=== PATIENT | male | born 1975 | race Caucasian/White ===

== ENCOUNTER 2016-09-09 19:58 | Emergency (ER) | payer BC ==
[2016-09-09 20:15] VITALS: BP 119/63
[2016-09-09] MEDS ORDERED: Amoxicillin/Clavulanate TAB* 875 MG PO ONE (20:22)
--- NOTE | 2016-09-09 20:31 | UC ---
Dental HPI - HPI Summary HPI Summary: Patient with a CC of dental pain located near the R upper molar x 2 weeks. He was seen by his dentist 2 weeks ago when symptoms began. Dentist stated to rinse with salt water and use water pick to clean out the area of the molar which may have a slight "hole" in the area. After 1 week of doing this twice daily, he states his symptoms improved and the pain dissipated. Now, he states the pain has returned and worsened. He also notes to associated pain in both ear, R sided throat pain and pain with swallowing. He states the dentist stated if symptoms did not improve, they would send over an antibiotic, however today the dentist is closed and patient states he cannot handle the pain anymore and is afraid it is an infection that is progressively worsening. Patient is taking ibuprofen for relief of pain. - History of Current Complaint Chief Complaint: UCDentalProblem Stated Complaint: DENTAL PAIN Hx Obtained From: Patient Onset/Duration: Gradual Onset Severity: Moderate Pain Intensity: 8 Pain Scale Used: 0-10 Numeric Aggravating: Heat, Cold, Chewing Alleviating: OTC Meds - ibuprofen improves symptoms Related History: Previous Dental Care on Same Tooth, Swelling - "feels" swollen per patient - Allergies/Home Medications Allergies/Adverse Reactions: Allergies Allergy/AdvReac Type Severity Reaction Status Date / Time No Known Allergies Allergy Verified 09/09/16 20:08 Home Medications: Home Medications Ibuprofen TAB* [Advil TAB*] 600 mg PO Q6H PRN 09/09/16 [History Confirmed ] PMH/Surg Hx/FS Hx/Imm Hx Previously Healthy: Yes Endocrine History Of: Denies: Diabetes, Thyroid Disease Cardiovascular History Of: Denies: Cardiac Disorders, Hypertension Respiratory History Of: Denies: COPD, Asthma GI/ History Of: Denies: Ulcer - Surgical History Surgical History: Yes Surgery Procedure, Year, and Place: Appendix out- 1979 - Family History Known Family History: Positive: Unknown - Social History Occupation: Employed Full-time Lives: With Family Alcohol Use: Rare Substance Use Type: None Smoking Status (MU): Former Smoker Have You Smoked in the Last Year: No - Immunization History Hx Tetanus, Diphtheria Vaccination: No Vaccination Up to Date: No Review of Systems Constitutional: Negative Skin: Negative Eyes: Negative ENT: Dental Pain, Sore Throat, Ear Ache Respiratory: Negative Cardiovascular: Negative Gastrointestinal: Negative Motor: Negative Musculoskeletal: Negative Neurological: Negative All Other Systems Reviewed And Are Negative: Yes Physical Exam Triage Information Reviewed: Yes Appearance: Well-Appearing, No Pain Distress, Well-Nourished Vital Signs: Initial Vital Signs Temp 97.7 F 09/09/16 20:12 Pulse 66 09/09/16 20:12 Resp 16 09/09/16 20:12 BP 119/63 09/09/16 20:12 Pulse Ox 99 09/09/16 20:12 Vital Signs Reviewed: Yes Eye Exam: Normal Eyes: Positive: Conjunctiva Clear ENT Exam: Normal ENT: Positive: Pharynx normal, TMs normal Dental: Positive: Percussion Tenderness @ - right upper and lower jaw, TMJ tenderness, right cervical node tenderness. Neck exam: Normal Neck: Positive: Supple, No Lymphadenopathy, Tenderness @ - cervical node Respiratory: Positive: Chest non-tender, Lungs clear, Normal breath sounds Cardiovascular Exam: Normal Musculoskeletal Exam: Normal Musculoskeletal: Positive: Strength Intact, ROM Intact Neurological Exam: Normal Neurological: Positive: Alert Psychological: Positive: Normal Response To Family, Age Appropriate Behavior Skin Exam: Normal Dental Complaint Course/Dx - Course Course Of Treatment: Patient given abx for dental abscess based on dentist recommendation and current pain over palpation of jaw, TMJ, throat and ear pain. Ibuprofen encouraged 600mg three times daily. Follow up with dentist this week. - Differential Dx/Diagnosis Differential Diagnosis/Dx: Dental Abscess, Dental Caries, Post Extraction Pain Provider Diagnoses: dental pain Discharge - Discharge Plan Condition: Stable Disposition: HOME Prescriptions: Amoxicillin/Clavulanate TAB* [Augmentin TAB 875*] 875 mg PO BID #14 tab MDD 2 Patient Education Materials: Dental Abscess (ED) Referrals: Genaro Jauregui MD [Primary Care Provider] - Additional Instructions: Return to if symptoms worsen or pain is not controlled with OTC pain medications such as tylenol or Ibuprofen. Take medication as prescribed to you. Iburpofen 600mg three times daily with meals for 3-4 days. Follow up with dentist as soon as possible. Images Dental: 1 - space "hole" with possible abscess over pulled molar
== END 2016-09-09 20:34 | disposition home or self-care (01) ==
LOC: UCEAST 19:58
DX: K08.89 Other specified disorders of teeth and supporting structures (principal); Z87.891 Personal history of nicotine dependence
CPT/HCPCS: 99212; A9270-GY; G0463

== ENCOUNTER 2017-03-18 11:30 | Emergency (ER) | payer BC ==
[2017-03-18 12:26] VITALS: BP 118/69
--- NOTE | 2017-03-18 12:46 | UC ---
Throat Pain/Nasal Barry HPI - HPI Summary HPI Summary: 42 y/o male presents to the urgent care c/o of sore throat with difficulty swallowing since 03/16/2017. Pt reports his pain is 4/10. Pt has not taking anything to alleviate symptoms. Pt denies fever, cough, SOB, chest pain, N/V/ D. MOREIRA. Pt has not other complains. - History of Current Complaint Chief Complaint: UCGeneralIllness Stated Complaint: THROAT PAIN Time Seen by Provider: 03/18/17 12:35 Hx Obtained From: Patient Onset/Duration: Gradual Onset, Lasting Days, Still Present Severity: Moderate Pain Intensity: 4 Pain Scale Used: 0-10 Numeric Associated Signs & Symptoms: Positive: Dysphagia. Negative: Sinus Discomfort, Fever, Vomiting, Rash - Epiglottits Risk Factors Epiglottis Risk Factors: Negative - Allergies/Home Medications Allergies/Adverse Reactions: Allergies Allergy/AdvReac Type Severity Reaction Status Date / Time No Known Allergies Allergy Verified 03/18/17 12:20 PMH/Surg Hx/FS Hx/Imm Hx Previously Healthy: Yes - Surgical History Surgical History: Yes Surgery Procedure, Year, and Place: Appendix out1979 - Family History Known Family History: Positive: None - Social History Occupation: Employed Full-time Lives: With Family Alcohol Use: Rare Substance Use Type: None Smoking Status (MU): Former Smoker Have You Smoked in the Last Year: No - Immunization History Most Recent Influenza Vaccination: 2014 Most Recent Tetanus Shot: up to date Hx Tetanus, Diphtheria Vaccination: No Vaccination Up to Date: No Review of Systems Constitutional: Negative Skin: Negative Eyes: Negative ENT: Sore Throat Respiratory: Negative Cardiovascular: Negative Gastrointestinal: Negative Genitourinary: Negative Motor: Negative Neurovascular: Negative Musculoskeletal: Negative Neurological: Negative Psychological: Negative All Other Systems Reviewed And Are Negative: Yes Physical Exam Triage Information Reviewed: Yes Appearance: Well-Appearing, No Pain Distress, Well-Nourished Vital Signs: Initial Vital Signs Temp 98.9 F 03/18/17 12:21 Pulse 64 03/18/17 12:21 Resp 18 03/18/17 12:21 BP 118/69 03/18/17 12:21 Pulse Ox 99 03/18/17 12:21 Vital Signs Reviewed: Yes Eye Exam: Normal Eyes: Positive: Conjunctiva Clear - PERRLA, EOMI, Fundi grossly normal ENT: Positive: Normal ENT inspection, Hearing grossly normal, Pharyngeal erythema - mild exudate, TMs normal, Tonsillar swelling. Negative: Tonsillar exudate Dental Exam: Normal Neck exam: Normal Neck: Positive: Supple, Nontender, No Lymphadenopathy Respiratory Exam: Normal Respiratory: Positive: Chest non-tender, Lungs clear, Normal breath sounds Cardiovascular Exam: Normal Cardiovascular: Positive: RRR, No Murmur, Pulses Normal Abdominal Exam: Normal Abdomen Description: Positive: Nontender, No Organomegaly, Soft. Negative: CVA Tenderness (R), CVA Tenderness (L) Bowel Sounds: Positive: Present Musculoskeletal Exam: Normal Musculoskeletal: Positive: Strength Intact, ROM Intact, No Edema Neurological Exam: Normal Psychological Exam: Normal Skin Exam: Normal Throat Pain/Nasal Course/Dx - Course Course Of Treatment: 42 y/o male presents to the urgent care c/o of sore throat with difficulty swallowing since 03/16/2017. Pt reports his pain is 4/10. Pt has not taking anything to alleviate symptoms. Pt denies fever, cough, SOB, chest pain, N/V/D. MOREIRA. Hx obtained,. PE abnormal findings: ENT: Positive: Normal ENT inspection, Hearing grossly normal, Pharyngeal erythema - mild exudate, TMs normal, Tonsillar swelling. Negative: Tonsillar exudate. Rapid strep ordered. Result:negative. Pt Rx Ibuprofen prn after meals to alleviate symptoms of pain and swelling, Advised to increase fluid intake and rest. If not improvement of symptoms or symptoms worsen to return to the clinic or f/u with his PCP. Pt uderstood and agreed. Pt left the clinic ambulating. - Differential Dx/Diagnosis Differential Diagnosis/HQI/PQRI: Laryngitis, Mononucleosis, Peritonsillar Abscess, Pharyngitis, Tonsillitis, URI Provider Diagnoses: 1-Viral pharyngitis Discharge - Discharge Plan Condition: Stable Disposition: HOME Prescriptions: Ibuprofen TAB* [Motrin TAB* 800 MG] 800 mg PO Q6H #20 tab Patient Education Materials: Pharyngitis (ED) Referrals: Genaro Jauregui MD [Primary Care Provider] - If Needed Additional Instructions: Please take the ibuprofen after meals to alleviate symptoms of pain and swelling. Increase fluid intake and rest. If symptoms do not improve or worsen please f/u with your PCP or return to the urgent care for further evaluation and treatment.
== END 2017-03-18 13:35 | disposition home or self-care (01) ==
LOC: UCEAST 11:30
DX: J02.8 Acute pharyngitis due to other specified organisms (principal); Z87.891 Personal history of nicotine dependence
CPT/HCPCS: 87651; 99212; G0463

== ENCOUNTER 2019-11-23 00:07 | Emergency (ER) | payer BC ==
[2019-11-23] MEDS ORDERED: Ketorolac *IM* INJ* 60 MG/2 ML VIAL IM ONE (00:27)
[2019-11-23] MEDS ORDERED: Penicillin VK TAB* 250 MG PO ONE (00:27)
[2019-11-23] MEDS ORDERED: oxyCODONE/Acetamin 5/325 MG* TAB PO ONE (00:27)
--- NOTE | 2019-11-23 00:29 | ED ---
Throat Pain/Nasal Congestion - HPI Summary HPI Summary: 44-year-old presents with dental pain for the past couple days. It is his right lower tooth that hurts. pain hurts more when there is pressure to the area. Patient states that it is a sharp pain. he has a crown on that tooth that he things may have moved. he has been unable to get into a dentist. pain does not change with temperature changes. No fevers. No chest pain or shortness of breath. Has no medical conditions. Has been taking ibuprofen without any relief. - History of Current Complaint Chief Complaint: EDDentalPain Time Seen by Provider: 11/23/19 00:22 - Allergies/Home Medications Allergies/Adverse Reactions: Allergies Allergy/AdvReac Type Severity Reaction Status Date / Time No Known Allergies Allergy Verified 03/18/17 12:20 Home Medications: Home Medications Ibuprofen TAB* [Motrin TAB* 800 MG] 800 mg PO Q6H #20 tab 03/18/17 [Rx] HYDROcodone/ACETAMIN 5-325 MG* [Kent 5-325 TAB*] 1 tab PO Q6H PRN #8 tab MDD 4 11/23/19 [Rx] Penicillin VK TAB* [Penicillin VK 250 mg Tab*] 500 mg PO QID #27 tab 11/23/19 [ Rx] PMH/Surg Hx/FS Hx/Imm Hx Endocrine/Hematology History: Denies: Hx Diabetes, Hx Thyroid Disease Cardiovascular History: Denies: Hx Hypertension Respiratory History: Denies: Hx Asthma, Hx Chronic Obstructive Pulmonary Disease (COPD) GI History: Denies: Hx Ulcer - Surgical History Surgery Procedure, Year, and Place: Appendix out- 1979 Infectious Disease History: No Infectious Disease History: Denies: Hx Clostridium Difficile, Hx Hepatitis, Hx Human Immunodeficiency Virus (HIV), Hx of Known/Suspected MRSA, Hx Shingles, Hx Tuberculosis, Hx Known/ Suspected VRE, Hx Known/Suspected VRSA, History Other Infectious Disease, Traveled Outside the [place] in Last 30 Days - Family History Known Family History: Positive: None, Unknown - Social History Alcohol Use: Rare Substance Use Type: Reports: None Smoking Status (MU): Former Smoker Have You Smoked in the Last Year: No Review of Systems Negative: Fever Positive: Dental Pain Negative: Chest Pain Negative: Shortness Of Breath All Other Systems Reviewed And Are Negative: Yes Physical Exam Triage Information Reviewed: Yes Vital Signs On Initial Exam: Initial Vitals Temp Pulse Resp BP Pulse Ox 96.7 F 53 20 165/107 97 11/23/19 00:10 11/23/19 00:10 11/23/19 00:10 11/23/19 00:10 11/23/19 00:10 Vital Signs Reviewed: Yes Appearance: Positive: Well-Appearing Skin: Positive: Warm, Dry Head/Face: Positive: Normal Head/Face Inspection Eyes: Positive: Normal, EOMI, ROSY, Conjunctiva Clear ENT: Positive: Pharynx normal, TMs normal Dental: Positive: Other - tenderness lower right tooth Neck: Positive: Supple, Nontender, No Lymphadenopathy Respiratory/Lung Sounds: Positive: Clear to Auscultation, Breath Sounds Present Cardiovascular: Positive: Normal, RRR Abdomen Description: Positive: Nontender, Soft Bowel Sounds: Positive: Present Musculoskeletal: Positive: Normal Neurological: Positive: Normal Psychiatric: Positive: Normal Procedures - Sedation Patient Received Moderate/Deep Sedation with Procedure: No Diagnostics - Vital Signs Vital Signs Temp Pulse Resp BP Pulse Ox 11/23/19 00:10 96.7 F 53 20 165/107 97 - Laboratory Lab Statement: Any lab studies that have been ordered have been reviewed, and results considered in the medical decision making process. EENT Course/Dx - Course Course Of Treatment: 44-year-old presents with dental pain for the past couple days. It is his right lower tooth that hurts. pain hurts more when there is pressure to the area. Patient states that it is a sharp pain. he has a crown on that tooth that he things may have moved. he has been unable to get into a dentist. pain does not change with temperature changes. No fevers. No chest pain or shortness of breath. Has no medical conditions. Has been taking ibuprofen without any relief. On exam tenderness over right lower tooth. No abscess noted. Will treat with penicillin and gave short course of pain medication. Told to follow up with dentist. Patient understands agrees with plan. - Differential Diagnoses Differential Diagnoses: Cellulitis, Dental Abscess, Dental Caries - Diagnoses Provider Diagnoses: Dental infection Discharge ED - Sign-Out/Discharge Documenting (check all that apply): Patient Departure - Discharge Plan Condition: Good Disposition: HOME Prescriptions: HYDROcodone/ACETAMIN 5-325 MG* [Kent 5-325 TAB*] 1 tab PO Q6H PRN #8 tab MDD 4 PRN Reason: Pain - Severe Penicillin VK TAB* [Penicillin VK 250 mg Tab*] 500 mg PO QID #27 tab Patient Education Materials: Toothache (ED) Referrals: Genaro Jauregui MD [Primary Care Provider] - Additional Instructions: Take antibiotics: 4 times a day for 7 days, first dose given in ED Use ibuprofen every 6 hours and norco for break through pain every 6 hours Follow up with dentist as soon as possible Return to ED if develop fever, shortness of breath, pain with eye movement or swelling around eye or any new or worsening symptoms - Billing Disposition and Condition Condition: GOOD Disposition: Home
[2019-11-23 00:52] VITALS: BP 136/100
== END 2019-11-23 00:51 | disposition home or self-care (01) ==
LOC: ED 00:07
DX: K04.7 Periapical abscess without sinus (principal); K08.89 Other specified disorders of teeth and supporting structures; Z87.891 Personal history of nicotine dependence
CPT/HCPCS: 96372; 99282; A9270-GY; J1885

== ENCOUNTER 2019-11-23 13:29 | Emergency (ER) | payer BC ==
[2019-11-23] MEDS ORDERED: Ketorolac *IM* INJ* 60 MG/2 ML VIAL IM ONE (14:01)
--- NOTE | 2019-11-23 14:04 | ED ---
Throat Pain/Nasal Congestion - HPI Summary HPI Summary: Patient is a 44 y/o M presenting to the ED for a chief complaint of right lower dental pain and right sided facial edema. Patient states that the pain initially began on 11/19/19 after possibly dislodging a crown while flossing his teeth. The dental pain has gradually worsened since initial onset. Patient initially took Motrin for the dental pain, but states this stopped working soon after starting it. Applying pressure on the area worsens the pain. He rates the dental pain as a 9/10 in severity. Patient denies fever. On 11/23/19, patient was seen at [facility] and given Toradol with relief. He was discharged home and prescribed antibiotics which he filled and took at 08:30 on 11/23/19. He called his dentist for a follow up, but was told he could not be seen on 11/23/19. Any significant PMHx, including DM, is denied. - History of Current Complaint Chief Complaint: EDDentalPain Time Seen by Provider: 11/23/19 13:47 Hx Obtained From: Patient Onset/Duration: Sudden Onset, Lasting Days, Still Present Severity: Severe - Allergies/Home Medications Allergies/Adverse Reactions: Allergies Allergy/AdvReac Type Severity Reaction Status Date / Time No Known Allergies Allergy Verified 11/23/19 13:37 Home Medications: Home Medications NK [No Home Medications Reported] 11/23/19 [History Confirmed 11/23/19] PMH/Surg Hx/FS Hx/Imm Hx Previously Healthy: Yes Endocrine/Hematology History: Denies: Hx Diabetes, Hx Thyroid Disease Cardiovascular History: Denies: Hx Hypertension Respiratory History: Denies: Hx Asthma, Hx Chronic Obstructive Pulmonary Disease (COPD) GI History: Denies: Hx Ulcer Sensory History: Denies: Hx Legally Blind, Hx Deafness Opthamlomology History: Denies: Hx Legally Blind EENT History: Denies: Hx Deafness - Surgical History Surgical History: Yes Surgery Procedure, Year, and Place: Appendix out- 1979 Infectious Disease History: No Infectious Disease History: Denies: Hx Clostridium Difficile, Hx Hepatitis, Hx Human Immunodeficiency Virus (HIV), Hx of Known/Suspected MRSA, Hx Shingles, Hx Tuberculosis, Hx Known/ Suspected VRE, Hx Known/Suspected VRSA, History Other Infectious Disease, Traveled Outside the [place] in Last 30 Days - Family History Known Family History: Negative: Cardiac Disease, Hypertension, Diabetes - Social History Occupation: Employed Full-time Lives: With Family Alcohol Use: Rare Hx Substance Use: No Substance Use Type: Reports: None Hx Tobacco Use: Yes Smoking Status (MU): Former Smoker Have You Smoked in the Last Year: No Review of Systems Negative: Fever Positive: Dental Pain - Right lower Positive: Edema - Positive right facial All Other Systems Reviewed And Are Negative: Yes Physical Exam - Summary Physical Exam Summary: Constitutional: Well-developed, Well-nourished, Alert. (-) Distressed Skin: Warm, Dry HENT: Normocephalic; Atraumatic. Right first mandibular molar with noted crown, no adjacent abscess or bleeding. Eyes: Conjunctiva normal Neck: Musculoskeletal ROM normal neck. (-) JVD, (-) Stridor, (-) Tracheal deviation Cardio: Rhythm regular, rate normal, Heart sounds normal; Intact distal pulses; The pedal pulses are 2+ and symmetric. Radial pulses are 2+ and symmetric. (-) Murmur Pulmonary/Chest wall: Effort normal. (-) Respiratory distress, (-) Wheezes, (-) Rales Abd: Soft, (-) tenderness, (-) Distension, (-) Guarding, (-) Rebound Musculoskeletal: (-) Edema Lymph: (-) Cervical adenopathy Neuro: Alert, Oriented x3 Psych: Mood and affect Normal Triage Information Reviewed: Yes Vital Signs On Initial Exam: Initial Vitals Temp Pulse Resp BP Pulse Ox 97.7 F 59 18 162/114 99 11/23/19 13:35 11/23/19 13:35 11/23/19 13:35 11/23/19 13:35 11/23/19 13:35 Vital Signs Reviewed: Yes Procedures - Sedation Patient Received Moderate/Deep Sedation with Procedure: No Diagnostics - Vital Signs Vital Signs Temp Pulse Resp BP Pulse Ox 11/23/19 13:35 97.7 F 59 18 162/114 99 - Laboratory Lab Statement: Any lab studies that have been ordered have been reviewed, and results considered in the medical decision making process. EENT Course/Dx - Course Course Of Treatment: Patient is a 44 y/o M presenting to the ED for a chief complaint of right lower dental pain and right sided facial edema. Patient states that the pain initially began on 11/19/19 after possibly dislodging a crown while flossing his teeth. Applying pressure on the area worsens the pain. He rates the dental pain as a 9/10 in severity. On 11/23/19, patient was seen at [facility] and given Toradol with relief. He was discharged home and prescribed antibiotics which he filled and took at 08:30 on 11/23/19. Any significant PMHx , including DM, is denied. On exam, right first mandibular molar with noted crown, no adjacent abscess or bleeding. In the ED course, patient was given Toradol 60 mg IM. Patient will be discharged with a diagnosis of dental pain. Follow up with a dentist within 2-3 days. - Diagnoses Provider Diagnoses: Pain, dental Discharge ED - Sign-Out/Discharge Documenting (check all that apply): Patient Departure - Discharge - Discharge Plan Condition: Stable Disposition: HOME Patient Education Materials: Toothache (ED) Referrals: Genaro Jauregui MD [Primary Care Provider] - Additional Instructions: RETURN TO THE EMERGENCY DEPARTMENT FOR CHANGING OR WORSENING SYMPTOMS. Follow up with your primary care physician in 2-3 days. - Billing Disposition and Condition Condition: STABLE Disposition: Home - Attestation Statements Document Initiated by Marineibe: Yes Documenting Scribe: Kayleigh Patel Provider For Whom Scribe is Documenting (Include Credential): Thomas Vital DO Scribe Attestation: Kayleigh Nolasco scribed for Thomas Vital DO on 11/23/19 at 1542. Scribe Documentation Reviewed: Yes Provider Attestation: The documentation as recorded by the Kayleigh nelson accurately reflects the service I personally performed and the decisions made by Thomas payne DO Status of Scribrafaela Document: Viewed
[2019-11-23 14:57] VITALS: BP 144/92
== END 2019-11-23 14:56 | disposition home or self-care (01) ==
LOC: ED 13:29
DX: K08.89 Other specified disorders of teeth and supporting structures (principal); R60.9 Edema, unspecified; Z87.891 Personal history of nicotine dependence
CPT/HCPCS: 99281; J1885